=== PATIENT | female | born 1980 | race Caucasian/White ===

== ENCOUNTER 2024-04-10 20:48 | Emergency (ER) | payer MEDICARE, MEDICAID, SELFPAY ==
[2024-04-10] VITALS (21 sets, daily range): BP systolic 80–116; BP diastolic 57–86; PULSE 73–107; TEMP 36.4; O2SAT 97; BMI 73.2
--- NOTE | 2024-04-10 20:51 | ECG_ITS ---
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
--- NOTE | 2024-04-10 20:51 | XR_ITS ---
[address] [address] Patient Name: JOSETTE DAVIS MRN: [id number] date: 1980 Sex: F Assigned Patient Location: ER Current Patient Location: ED.MAIN Accession/Order Number: [id number] Exam Date: 04/10/2024 21:10 Report Date: 04/10/2024 21:58 At the request of: ARMANDO GONZALEZ Procedure: XR chest 1V Exam: Radiographs: XR chest 1V Reason for exam: Altered mental status Comparison: None XR/XR chest 1V IMPRESSION: Surgical clips project over the chest. Pulmonary vascular congestion. Chest is otherwise unremarkable. Electronically authenticated by: GRABIEL SANCHEZ Date: 04/10/2024 21:58
--- NOTE | 2024-04-10 20:55 | ED.GENADUL1 ---
Documented by User: HERI Molina 04/10/24 21:54 HPI HPI - General Adult General Chief complaint: Syncope Stated complaint: Syncope, Nausea/Vomiting Time Seen by Provider: 04/10/24 20:51 History of Present Illness HPI narrative: Patient is a 44-year-old female who presents to the emergency department with her friend for evaluation of near syncope and vomiting. Patient was pulled out of the vehicle that her friend was driving, she lives in [facility] and was driving with a friend to visit family in [place] when the patient began to feel lightheaded and was going in and out associated with vomiting. She had a nosebleed. She had no complete unresponsiveness for any period of time, no injuries or falls. She is drowsy but arousable and answers questions on placement in an exam room. She initially states that she had a blood transfusion and surgery for tubal at [facility]. However when she is asked to qualify this, she states she has a history of low iron secondary to surgery For ectopic that was performed 8 months ago at [facility]. She received a blood transfusion at that time and has not required any further blood transfusions or procedures. 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 She is adamant that she has not been drinking alcohol today. Related Data Home Medications ?Medication ?Instructions ?Recorded ?Confirmed gabapentin 800 mg tablet 800 mg PO TID 04/10/24 04/10/24 venlafaxine 150 mg 150 mg PO DAILY 04/10/24 04/10/24 capsule,extended release 24 hr Allergies Allergy/AdvReac Type Severity Reaction Status Date / Time No Known Drug Allergies Allergy Verified 04/10/24 20:57 Opioid HPI Opioid Management Most Recent Opioid Data: Ur Phencyclidine Scrn Negative (NEGATIVE) 04/10/24 23:25 Exam Constitutional Vital Signs, click to edit/add: Last Vital Signs Temp 97.6 F 04/10/24 20:51 Pulse 98 H 04/10/24 23:00 Resp 22 H 04/10/24 23:00 BP 115/71 04/10/24 23:00 Pulse Ox 97 04/10/24 20:51 O2 Del Method Room Air 04/10/24 20:51 Course Vital Signs Vital signs: Vital Signs Temperature 97.6 F 04/10/24 20:51 Pulse Rate 73 04/10/24 20:51 Respiratory Rate 20 04/10/24 20:51 Blood Pressure 80/61 L 04/10/24 20:51 Pulse Oximetry 97 04/10/24 20:51 Oxygen Delivery Method Room Air 04/10/24 20:51 Temperature 97.6 F 04/10/24 20:51 Pulse Rate 98 H 04/10/24 23:00 Respiratory Rate 22 H 04/10/24 23:00 Blood Pressure 115/71 04/10/24 23:00 Pulse Oximetry 97 04/10/24 20:51 Oxygen Delivery Method Room Air 04/10/24 20:51 Medical Decision Making MDM Narrative Medical decision making narrative: Patient was brought directly to an exam room and was evaluated by myself and nursing staff. She was found to be hypotensive initially, when she laid flat and her blood pressure improved, the patient became more awake and alert. She has no slurred speech or focal neuro deficit in the ER. She refused a head CT but was agreeable to a chest x-ray. Blood sugar is 164 at the bedside, EKG obtained and labs were established with IV for IV fluids. 2152: Case turned over to attending physician at this time SHARED APC VISIT, PHYSICIAN ATTESTATION: [id number] I performed a substantive part of the MDM during the patient?s E/M visit. I personally evaluated and examined the patient. I personally made or approved the documented management plan and acknowledge its risk of complications. Medical Records Medical records reviewed: Yes I reviewed the patient's medical records Lab Data Lab results reviewed: Yes I reviewed the patient's lab results Labs: Lab Results 04/10/24 04/10/24 04/10/24 Range/Units 20:55 21:00 23:25 WBC 16.9 H (4.0-11.0) 10^3/uL RBC 4.16 L (4.20-5.40) 10^6/uL Hgb 12.5 (12.0-16.0) g/dL Hct 37.5 (36.0-48.0) % MCV 90.1 (81.0-99.0) fL MCH 30.0 (26.7-34.0) pg MCHC 33.3 (29.9-35.2) g/dL RDW 12.0 (11.0-15.0) % Plt Count 447 (150-450) 10^3/uL MPV 9.3 L (9.5-13.5) fL Seg Neuts % (Manual) 43.0 Band Neutrophils % 1.0 (0-5) % Lymphocytes % (Manual) 33.0 (20.5-60.0) % Atypical Lymphs % (Man) 16.0 % Monocytes % (Manual) 4.0 (1.7-12.0) % Eosinophils % (Manual) 3.0 (0.9-7.0) % Basophils % (Manual) 0.0 L (0.2-2.0) % Neutrophils # (Manual) 7.26 H (1.4-6.5) 10^3/uL Band Neutrophils # 0.2 (0.0-0.3) 10^3/uL Lymphocytes # (Manual) 5.57 H (1.20-3.80) 10^3/uL Abs Atypical Lymphs Man 2.70 Monocytes # (Manual) 0.67 (0.30-0.80) 10^3/uL Eosinophils # (Manual) 0.50 (0.00-0.70) 10^3/uL Basophils # (Manual) 0.00 (0.00-0.10) 10^3/uL PT 9.8 (9.0-11.6) sec INR <0.93 VBG pH 7.454 H (7.330-7.430) VBG pCO2 32.7 L (40.0-52.0) mmHg Sodium 136 (136-145) mmol/L Potassium 2.6 L* (3.5-5.1) mmol/L Chloride 99 (98-107) mmol/L Carbon Dioxide 24.2 (21.0-32.0) mmol/L Anion Gap 15.4 BUN 9.0 (7.0-18.0) mg/dL Creatinine 1.05 H (0.55-1.02) mg/dL Est GFR ( Amer) >60 (>=60) Est GFR (Non-Af Amer) 57 L (>=60) BUN/Creatinine Ratio 8.6 Glucose 174 H (74-106) mg/dL Lactate 3.6 H* (0.4-2.0) mmol/L Calcium 9.2 (8.5-10.1) mg/dL Magnesium 2.3 (1.8-2.4) mg/dL Total Bilirubin 0.3 (0.2-1.0) mg/dL AST 17 (15-37) U/L ALT 52 (14-59) U/L Alkaline Phosphatase 78 (46-116) U/L Troponin I High Sens <4.0 L (4.0-51.3) pg/mL Total Protein 7.5 (6.4-8.2) g/dL Albumin 3.7 (3.4-5.0) g/dL Globulin 3.8 g/dL Albumin/Globulin Ratio 1.0 TSH 2.203 (0.358-3.740) uIU/mL Serum HCG, Qual Negative (NEGATIVE) Urine Color Lt. yellow (YELLOW) Urine Clarity Clear (CLEAR) Urine pH 7.0 (5.0-9.0) Ur Specific [place] 1.010 (1.005-1.025) Urine Protein Negative (NEG/TRACE) mg/dL Urine Glucose (UA) Negative (NEGATIVE) mg/dL Urine Ketones Negative (NEGATIVE) mg/dL Urine Occult Blood Negative (NEGATIVE) Urine Nitrite Negative (NEGATIVE) Urine Bilirubin Negative (NEGATIVE) Urine Urobilinogen 0.2 (0.2-1.0) EU/dL Ur Leukocyte Esterase Negative (NEGATIVE) Urine Opiates Screen Negative (NEGATIVE) Ur Buprenorphine Scrn Negative (NEGATIVE) Ur Oxycodone Screen Negative (NEGATIVE) Urine Methadone Screen Negative (NEGATIVE) Ur Barbiturates Screen Negative (NEGATIVE) U Tricyclic Antidepress Negative (NEGATIVE) Ur Phencyclidine Scrn Negative (NEGATIVE) Ur Amphetamines Screen Negative (NEGATIVE) U Methamphetamines Scrn Negative (NEGATIVE) U Benzodiazepines Scrn Negative (NEGATIVE) Urine Cocaine Screen Negative (NEGATIVE) U Cannabinoids Screen Positive A (NEGATIVE) Ethanol Quant <3 mg/dL POC Glucose 164 H (74-106) mg/dL 04/11/24 Range/Units 00:05 WBC (4.0-11.0) 10^3/uL RBC (4.20-5.40) 10^6/uL Hgb (12.0-16.0) g/dL Hct (36.0-48.0) % MCV (81.0-99.0) fL MCH (26.7-34.0) pg MCHC (29.9-35.2) g/dL RDW (11.0-15.0) % Plt Count (150-450) 10^3/uL MPV (9.5-13.5) fL Seg Neuts % (Manual) Band Neutrophils % (0-5) % Lymphocytes % (Manual) (20.5-60.0) % Atypical Lymphs % (Man) % Monocytes % (Manual) (1.7-12.0) % Eosinophils % (Manual) (0.9-7.0) % Basophils % (Manual) (0.2-2.0) % Neutrophils # (Manual) (1.4-6.5) 10^3/uL Band Neutrophils # (0.0-0.3) 10^3/uL Lymphocytes # (Manual) (1.20-3.80) 10^3/uL Abs Atypical Lymphs Man Monocytes # (Manual) (0.30-0.80) 10^3/uL Eosinophils # (Manual) (0.00-0.70) 10^3/uL Basophils # (Manual) (0.00-0.10) 10^3/uL PT (9.0-11.6) sec INR VBG pH (7.330-7.430) VBG pCO2 (40.0-52.0) mmHg Sodium (136-145) mmol/L Potassium (3.5-5.1) mmol/L Chloride (98-107) mmol/L Carbon Dioxide (21.0-32.0) mmol/L Anion Gap BUN (7.0-18.0) mg/dL Creatinine (0.55-1.02) mg/dL Est GFR ( Amer) (>=60) Est GFR (Non-Af Amer) (>=60) BUN/Creatinine Ratio Glucose (74-106) mg/dL Lactate 2.0 (0.4-2.0) mmol/L Calcium (8.5-10.1) mg/dL Magnesium (1.8-2.4) mg/dL Total Bilirubin (0.2-1.0) mg/dL AST (15-37) U/L ALT (14-59) U/L Alkaline Phosphatase (46-116) U/L Troponin I High Sens (4.0-51.3) pg/mL Total Protein (6.4-8.2) g/dL Albumin (3.4-5.0) g/dL Globulin g/dL Albumin/Globulin Ratio TSH (0.358-3.740) uIU/mL Serum HCG, Qual (NEGATIVE) Urine Color (YELLOW) Urine Clarity (CLEAR) Urine pH (5.0-9.0) Ur Specific [place] (1.005-1.025) Urine Protein (NEG/TRACE) mg/dL Urine Glucose (UA) (NEGATIVE) mg/dL Urine Ketones (NEGATIVE) mg/dL Urine Occult Blood (NEGATIVE) Urine Nitrite (NEGATIVE) Urine Bilirubin (NEGATIVE) Urine Urobilinogen (0.2-1.0) EU/dL Ur Leukocyte Esterase (NEGATIVE) Urine Opiates Screen (NEGATIVE) Ur Buprenorphine Scrn (NEGATIVE) Ur Oxycodone Screen (NEGATIVE) Urine Methadone Screen (NEGATIVE) Ur Barbiturates Screen (NEGATIVE) U Tricyclic Antidepress (NEGATIVE) Ur Phencyclidine Scrn (NEGATIVE) Ur Amphetamines Screen (NEGATIVE) U Methamphetamines Scrn (NEGATIVE) U Benzodiazepines Scrn (NEGATIVE) Urine Cocaine Screen (NEGATIVE) U Cannabinoids Screen (NEGATIVE) Ethanol Quant mg/dL POC Glucose (74-106) mg/dL Imaging Data Chest x-ray: Attestation: I have reviewed the pertinent imaging results. Radiologist's impression: ITS Impressions Chest X-Ray 04/10/24 20:51 IMPRESSION: Surgical clips project over the chest. Pulmonary vascular congestion. Chest is otherwise unremarkable. Electronically authenticated by: GRABIEL SANCHEZ Date: 04/10/2024 21:[address] 04/10/24 23:29 IMPRESSION: 1. No acute intracranial abnormality. No hemorrhage or mass effect. 2. Opacification of mastoid air cells within the mastoid tip on the left. Electronically authenticated by: KECIA METZGER Date: 04/11/2024 00:03 Chest CTA 04/11/24 00:49 IMPRESSION: 1. No acute pulmonary embolism, aortic dissection, or other acute cardiopulmonary findings. 2. Suggested 2 cm hypodense right thyroid lobe lesion. Elective thyroid ultrasound could further evaluate. 3. Prior bilateral mastectomy and breast reconstruction. Electronically authenticated by: DMITRI NUÑEZ Date: 04/11/2024 02:17 ECG Data Attestation: I personally reviewed and interpreted this ECG as follows: (Normal sinus rhythm at a rate of 85, no acute ST elevation or ectopy. EKG reviewed by attending physician) Discharge Plan Discharge Stand Alone Forms: Portal Instructions Chief Complaint: Syncope Clinical Impression: Hypokalemia, Syncope Patient Disposition: Home, Self-Care Time of Disposition Decision: 00:44 Condition: Good Prescriptions / Home Meds: No Action gabapentin 800 mg tablet 800 mg PO TID venlafaxine 150 mg capsule,extended release 24hr 150 mg PO DAILY Print Language: Fijian Instructions: Potassium Content of Foods List (ED), Hypokalemia (ED), Syncope (ED) Referrals: Physician,Non-Staff, MD [Primary Care Provider] - 1 week Documented by User: Nathaly Reese MD 04/11/24 02:30 HPI HPI - General Adult General Chief complaint: Syncope Stated complaint: Syncope, Nausea/Vomiting Time Seen by Provider: 04/10/24 20:51 Related Data Home Medications ?Medication ?Instructions ?Recorded ?Confirmed gabapentin 800 mg tablet 800 mg PO TID 04/10/24 04/10/24 venlafaxine 150 mg 150 mg PO DAILY 04/10/24 04/10/24 capsule,extended release 24 hr Allergies Allergy/AdvReac Type Severity Reaction Status Date / Time No Known Drug Allergies Allergy Verified 04/10/24 20:57 Opioid HPI Opioid Management Most Recent Opioid Data: Ur Phencyclidine Scrn Negative (NEGATIVE) 04/10/24 23:25 Exam Constitutional Vital Signs, click to edit/add: Last Vital Signs Temp 97.6 F 04/10/24 20:51 Pulse 98 H 04/10/24 23:00 Resp 22 H 04/10/24 23:00 BP 115/71 04/10/24 23:00 Pulse Ox 97 04/10/24 20:51 O2 Del Method Room Air 04/10/24 20:51 Course Vital Signs Vital signs: Vital Signs Temperature 97.6 F 04/10/24 20:51 Pulse Rate 73 04/10/24 20:51 Respiratory Rate 20 04/10/24 20:51 Blood Pressure 80/61 L 04/10/24 20:51 Pulse Oximetry 97 04/10/24 20:51 Oxygen Delivery Method Room Air 04/10/24 20:51 Temperature 97.6 F 04/10/24 20:51 Pulse Rate 98 H 04/10/24 23:00 Respiratory Rate 22 H 04/10/24 23:00 Blood Pressure 115/71 04/10/24 23:00 Pulse Oximetry 97 04/10/24 20:51 Oxygen Delivery Method Room Air 04/10/24 20:51 Medical Decision Making MDM Narrative Medical decision making narrative: Patient was brought directly to an exam room and was evaluated by myself and nursing staff. She was found to be hypotensive initially, when she laid flat and her blood pressure improved, the patient became more awake and alert. She has no slurred speech or focal neuro deficit in the ER. She refused a head CT but was agreeable to a chest x-ray. Blood sugar is 164 at the bedside, EKG obtained and labs were established with IV for IV fluids. 2152: Case turned over to attending physician at this time SHARED APC VISIT, PHYSICIAN ATTESTATION: [id number] I performed a substantive part of the MDM during the patient?s E/M visit. I personally evaluated and examined the patient. I personally made or approved the documented management plan and acknowledge its risk of complications. This 44-year-old female was seen and evaluated in conjunction with the physician assistant controller. She was brought to the emergency department by her family who is heading to a friend's house in [place] when she suddenly became less responsive and syncopal/near syncopal in the car. Upon arrival she was seen and evaluated in room 4. A cardiac workup was ordered including a CT scan of the brain which she initially refused. EKG upon arrival was a sinus rhythm 85 bpm with a normal axis. According to the woman with the patient she has had similar episodes of syncope in the past when she was taking Accutane and drinking alcohol. Her workup today is normal with the exception of an elevated lactic acid and low potassium and elevated WBC count of 16.9. She was given oral and IV potassium supplementation. On reevaluation she is awake alert oriented. She does have a history of breast cancer at the age of 26 and had a mastectomy on the left side and has some lymphedema of the left arm. This is unchanged. There is no induration or tenderness concerning for DVT. After her initial treatment she was feeling better, awake alert oriented, giving a complete history, she is tolerating clear liquids. She ultimately agreed to the CT scan of her brain. The CT scan of her brain was negative for acute findings. Her alcohol level was 0 and her urine tox was positive for marijuana. Repeat lactic acid is normal at 2. She agrees to follow-up closely with her family physician in her hometown. She will be discharged home with a prescription for potassium to take for the next week until she can get her potassium rechecked. There is no sign of infection despite her elevated white count and lactic acid. I suspect the symptoms are related to what ever caused her to have the syncopal event in the first place and are acute phase reactants. The patient agreed to a CT angiogram due to her history of tobacco use and cancer to rule out PE or other cancer related findings. CT scan is included in the body of this report and does not show any pulmonary embolism, aortic abnormality but does show a thyroid nodule. This was discussed with the patient and she was given a copy to share with her physician. It suggest that she should have a thyroid ultrasound. She will follow-up with her family physician regarding this. She is otherwise hemodynamically stable and was has received her fluids with potassium. She will be discharged home with prescription for potassium supplementation for the next week with recommendation for close follow-up with her family physician for repeat testing. Medical Records Medical records narrative: The [address] [address] [address] Scan Report Signed Patient: JOSETTE DAVIS MR#: [id number] : 1980 Acct:[id number] Age/Sex: 44 / F ADM Date: 04/10/24 Loc: ER Attending Dr: Ordering Physician: Nathaly Reese Date of Service: 04/10/24 Procedure(s): CT head/brain wo con Accession Number(s): [id number] cc: Physician,Non-Staff M.Giovanni~ The [address] [address] Patient Name: JOSETTE DAVIS MRN: [id number] date: 1980 Sex: F Assigned Patient Location: ER Current Patient Location: ER Accession/Order Number: [id number] Exam Date: 04/10/2024 23:40 Report Date: 04/11/2024 00:03 At the request of: NATHALY REESE Procedure: CT head/brain wo con INDICATION: 44 years old; Female. Syncopal episode today. TECHNIQUE: CT Head (ax/cor/sag reformats). Ionizing radiation dose reduced via iterative reconstruction/FBP blend and body size kV/mA adjustment. Comparison: None FINDINGS: POSTOPERATIVE CHANGES: None. BRAIN PARENCHYMA: No intraparenchymal or extra-axial hemorrhage. No mass effect. No midline shift or herniation. Normal demarco/white differentiation. VENTRICLES/EXTRA-AXIAL SPACES: Normal for patient's age. SINUSES/MASTOIDS: Sinuses are clear, however the ethmoid and maxillary sinuses are not completely included. There is opacification of mastoid air cells present on the left within the mastoid tip. Middle ears are clear bilaterally. Mastoids and the right are clear. MSK: No displaced or depressed calvarial fracture. OTHER: No hyperdense intraluminal thrombus. CT/CT head/brain wo con IMPRESSION: 1. No acute intracranial abnormality. No hemorrhage or mass effect. 2. Opacification of mastoid air cells within the mastoid tip on the left. Electronically authenticated by: KECIA METZGER Date: 04/11/2024 00:03 [place] [address] CT Scan Report Signed Patient: JOSETTE DAVIS MR#: [id number] : 1980 Acct:[id number] Age/Sex: 44 / F ADM Date: 04/10/24 Loc: ER Attending Dr: Ordering Physician: Nathaly Reese Date of Service: 04/11/24 Procedure(s): CT angio chest Accession Number(s): [id number] cc: Physician,Non-Staff M.Giovanni~ The [place] [address] Patient Name: JOSETTE DAVIS MRN: [id number] date: 1980 Sex: F Assigned Patient Location: ER Current Patient Location: ER Accession/Order Number: [id number] Exam Date: 04/11/2024 01:17 Report Date: 04/11/2024 02:17 At the request of: NATHALY REESE Procedure: CT angio chest EXAM: CT angio chest HISTORY: syncope, hx breast ca COMPARISON: Chest x-ray, 04/10/2024. TECHNIQUE: IV contrast enhanced CTA imaging the chest was performed using 100 mL of Omnipaque 350 intravenous contrast. MIP, MPR and 3-D reconstructions are provided. Dose reduction techniques were achieved by using automated exposure control and/or adjustment of mA and/or kV according to patient size and/or use of iterative reconstruction technique. FINDINGS: There is excellent enhancement of the pulmonary arteries. No acute pulmonary embolism is seen. There is no coronary arterial calcification. Cardiac size is normal. There is no pericardial effusion. Pulsation artifact degrades ascending aorta. The brachiocephalic artery and left common carotid artery share a common origin off the aortic arch, consistent with a normal variant bovine arch. The thoracic aorta and arch vessels are otherwise unremarkable. There is no dissection or aneurysm. There is asymmetric enlargement of the right thyroid lobe with a suggested 2 cm ovoid hypodense lesion on image 13 of series 4. Several nonspecific prominent right axillary nodes have fatty yoly and appear benign. The lungs and pleural spaces are clear. The upper abdomen is unremarkable. Postoperative change for bilateral mastectomy and breast reconstruction is noted. The bony thorax is intact. CT/CT angio chest IMPRESSION: 1. No acute pulmonary embolism, aortic dissection, or other acute cardiopulmonary findings. 2. Suggested 2 cm hypodense right thyroid lobe lesion. Elective thyroid ultrasound could further evaluate. 3. Prior bilateral mastectomy and breast reconstruction. Electronically authenticated by: DMITRI NUÑEZ Date: 04/11/2024 02:17 Lab Data Labs: Lab Results 04/10/24 04/10/24 04/10/24 Range/Units 20:55 21:00 23:25 WBC 16.9 H (4.0-11.0) 10^3/uL RBC 4.16 L (4.20-5.40) 10^6/uL Hgb 12.5 (12.0-16.0) g/dL Hct 37.5 (36.0-48.0) % MCV 90.1 (81.0-99.0) fL MCH 30.0 (26.7-34.0) pg MCHC 33.3 (29.9-35.2) g/dL RDW 12.0 (11.0-15.0) % Plt Count 447 (150-450) 10^3/uL MPV 9.3 L (9.5-13.5) fL Seg Neuts % (Manual) 43.0 Band Neutrophils % 1.0 (0-5) % Lymphocytes % (Manual) 33.0 (20.5-60.0) % Atypical Lymphs % (Man) 16.0 % Monocytes % (Manual) 4.0 (1.7-12.0) % Eosinophils % (Manual) 3.0 (0.9-7.0) % Basophils % (Manual) 0.0 L (0.2-2.0) % Neutrophils # (Manual) 7.26 H (1.4-6.5) 10^3/uL Band Neutrophils # 0.2 (0.0-0.3) 10^3/uL Lymphocytes # (Manual) 5.57 H (1.20-3.80) 10^3/uL Abs Atypical Lymphs Man 2.70 Monocytes # (Manual) 0.67 (0.30-0.80) 10^3/uL Eosinophils # (Manual) 0.50 (0.00-0.70) 10^3/uL Basophils # (Manual) 0.00 (0.00-0.10) 10^3/uL PT 9.8 (9.0-11.6) sec INR <0.93 VBG pH 7.454 H (7.330-7.430) VBG pCO2 32.7 L (40.0-52.0) mmHg Sodium 136 (136-145) mmol/L Potassium 2.6 L* (3.5-5.1) mmol/L Chloride 99 (98-107) mmol/L Carbon Dioxide 24.2 (21.0-32.0) mmol/L Anion Gap 15.4 BUN 9.0 (7.0-18.0) mg/dL Creatinine 1.05 H (0.55-1.02) mg/dL Est GFR ( Amer) >60 (>=60) Est GFR (Non-Af Amer) 57 L (>=60) BUN/Creatinine Ratio 8.6 Glucose 174 H (74-106) mg/dL Lactate 3.6 H* (0.4-2.0) mmol/L Calcium 9.2 (8.5-10.1) mg/dL Magnesium 2.3 (1.8-2.4) mg/dL Total Bilirubin 0.3 (0.2-1.0) mg/dL AST 17 (15-37) U/L ALT 52 (14-59) U/L Alkaline Phosphatase 78 (46-116) U/L Troponin I High Sens <4.0 L (4.0-51.3) pg/mL Total Protein 7.5 (6.4-8.2) g/dL Albumin 3.7 (3.4-5.0) g/dL Globulin 3.8 g/dL Albumin/Globulin Ratio 1.0 TSH 2.203 (0.358-3.740) uIU/mL Serum HCG, Qual Negative (NEGATIVE) Urine Color Lt. yellow (YELLOW) Urine Clarity Clear (CLEAR) Urine pH 7.0 (5.0-9.0) Ur Specific [place] 1.010 (1.005-1.025) Urine Protein Negative (NEG/TRACE) mg/dL Urine Glucose (UA) Negative (NEGATIVE) mg/dL Urine Ketones Negative (NEGATIVE) mg/dL Urine Occult Blood Negative (NEGATIVE) Urine Nitrite Negative (NEGATIVE) Urine Bilirubin Negative (NEGATIVE) Urine Urobilinogen 0.2 (0.2-1.0) EU/dL Ur Leukocyte Esterase Negative (NEGATIVE) Urine Opiates Screen Negative (NEGATIVE) Ur Buprenorphine Scrn Negative (NEGATIVE) Ur Oxycodone Screen Negative (NEGATIVE) Urine Methadone Screen Negative (NEGATIVE) Ur Barbiturates Screen Negative (NEGATIVE) U Tricyclic Antidepress Negative (NEGATIVE) Ur Phencyclidine Scrn Negative (NEGATIVE) Ur Amphetamines Screen Negative (NEGATIVE) U Methamphetamines Scrn Negative (NEGATIVE) U Benzodiazepines Scrn Negative (NEGATIVE) Urine Cocaine Screen Negative (NEGATIVE) U Cannabinoids Screen Positive A (NEGATIVE) Ethanol Quant <3 mg/dL POC Glucose 164 H (74-106) mg/dL 04/11/24 Range/Units 00:05 WBC (4.0-11.0) 10^3/uL RBC (4.20-5.40) 10^6/uL Hgb (12.0-16.0) g/dL Hct (36.0-48.0) % MCV (81.0-99.0) fL MCH (26.7-34.0) pg MCHC (29.9-35.2) g/dL RDW (11.0-15.0) % Plt Count (150-450) 10^3/uL MPV (9.5-13.5) fL Seg Neuts % (Manual) Band Neutrophils % (0-5) % Lymphocytes % (Manual) (20.5-60.0) % Atypical Lymphs % (Man) % Monocytes % (Manual) (1.7-12.0) % Eosinophils % (Manual) (0.9-7.0) % Basophils % (Manual) (0.2-2.0) % Neutrophils # (Manual) (1.4-6.5) 10^3/uL Band Neutrophils # (0.0-0.3) 10^3/uL Lymphocytes # (Manual) (1.20-3.80) 10^3/uL Abs Atypical Lymphs Man Monocytes # (Manual) (0.30-0.80) 10^3/uL Eosinophils # (Manual) (0.00-0.70) 10^3/uL Basophils # (Manual) (0.00-0.10) 10^3/uL PT (9.0-11.6) sec INR VBG pH (7.330-7.430) VBG pCO2 (40.0-52.0) mmHg Sodium (136-145) mmol/L Potassium (3.5-5.1) mmol/L Chloride (98-107) mmol/L Carbon Dioxide (21.0-32.0) mmol/L Anion Gap BUN (7.0-18.0) mg/dL Creatinine (0.55-1.02) mg/dL Est GFR ( Amer) (>=60) Est GFR (Non-Af Amer) (>=60) BUN/Creatinine Ratio Glucose (74-106) mg/dL Lactate 2.0 (0.4-2.0) mmol/L Calcium (8.5-10.1) mg/dL Magnesium (1.8-2.4) mg/dL Total Bilirubin (0.2-1.0) mg/dL AST (15-37) U/L ALT (14-59) U/L Alkaline Phosphatase (46-116) U/L Troponin I High Sens (4.0-51.3) pg/mL Total Protein (6.4-8.2) g/dL Albumin (3.4-5.0) g/dL Globulin g/dL Albumin/Globulin Ratio TSH (0.358-3.740) uIU/mL Serum HCG, Qual (NEGATIVE) Urine Color (YELLOW) Urine Clarity (CLEAR) Urine pH (5.0-9.0) Ur Specific [place] (1.005-1.025) Urine Protein (NEG/TRACE) mg/dL Urine Glucose (UA) (NEGATIVE) mg/dL Urine Ketones (NEGATIVE) mg/dL Urine Occult Blood (NEGATIVE) Urine Nitrite (NEGATIVE) Urine Bilirubin (NEGATIVE) Urine Urobilinogen (0.2-1.0) EU/dL Ur Leukocyte Esterase (NEGATIVE) Urine Opiates Screen (NEGATIVE) Ur Buprenorphine Scrn (NEGATIVE) Ur Oxycodone Screen (NEGATIVE) Urine Methadone Screen (NEGATIVE) Ur Barbiturates Screen (NEGATIVE) U Tricyclic Antidepress (NEGATIVE) Ur Phencyclidine Scrn (NEGATIVE) Ur Amphetamines Screen (NEGATIVE) U Methamphetamines Scrn (NEGATIVE) U Benzodiazepines Scrn (NEGATIVE) Urine Cocaine Screen (NEGATIVE) U Cannabinoids Screen (NEGATIVE) Ethanol Quant mg/dL POC Glucose (74-106) mg/dL Imaging Data Chest x-ray: Radiologist's impression: ITS Impressions Chest X-Ray 04/10/24 20:51 IMPRESSION: Surgical clips project over the chest. Pulmonary vascular congestion. Chest is otherwise unremarkable. Electronically authenticated by: GRABIEL SANCHEZ Date: 04/10/2024 21:[address] 04/10/24 23:29 IMPRESSION: 1. No acute intracranial abnormality. No hemorrhage or mass effect. 2. Opacification of mastoid air cells within the mastoid tip on the left. Electronically authenticated by: KECIA METZGER Date: 04/11/2024 00:03 Chest CTA 04/11/24 00:49 IMPRESSION: 1. No acute pulmonary embolism, aortic dissection, or other acute cardiopulmonary findings. 2. Suggested 2 cm hypodense right thyroid lobe lesion. Elective thyroid ultrasound could further evaluate. 3. Prior bilateral mastectomy and breast reconstruction. Electronically authenticated by: DMITRI NUÑEZ Date: 04/11/2024 02:17 Discharge Plan Discharge Stand Alone Forms: Portal Instructions Chief Complaint: Syncope Clinical Impression: Hypokalemia, Syncope Patient Disposition: Home, Self-Care Time of Disposition Decision: 00:44 Condition: Good Prescriptions / Home Meds: No Action gabapentin 800 mg tablet 800 mg PO TID venlafaxine 150 mg capsule,extended release 24hr 150 mg PO DAILY Print Language: Fijian Instructions: Potassium Content of Foods List (ED), Hypokalemia (ED), Syncope (ED) Referrals: Physician,Non-Staff, MD [Primary Care Provider] - 1 week
[2024-04-10 21:04] LABS: Glucometer 164 mg/dL (74-106)
[2024-04-10] MEDS: 0.9 % SODIUM CHLORIDE 1,000 ML 999 ML IV (21:18)
[2024-04-10] MEDS: ONDANSETRON PF 4 MG/2 ML VIAL IV (21:18)
[2024-04-10 21:26] LABS: PCO2 VBG 32.7 mmHg (40.0-52.0); pH VBG 7.454 (7.330-7.430)
[2024-04-10 21:28] LABS: Hematocrit 37.5 % (36.0-48.0); Hemoglobin 12.5 g/dL (12.0-16.0); Mean Corpuscular HGB Conc 33.3 g/dL (29.9-35.2); Mean Corpuscular Volume 90.1 fL (81.0-99.0); Mean Platelet Volume 9.3 fL (9.5-13.5); Platelet Count 447 10^3/uL (150-450); Red Blood Count 4.16 10^6/uL (4.20-5.40); White Blood Count 16.9 10^3/uL (4.0-11.0)
[2024-04-10 21:39] LABS: HCG Qualitative NEGATIVE (NEGATIVE); Internal Control Within Normal Limits
[2024-04-10 21:41] LABS: Prothrombin Time 9.8 sec (9.0-11.6)
[2024-04-10 21:44] LABS: INR <0.93
[2024-04-10 21:55] LABS: Alanine Aminotransferase 52 U/L (14-59); Albumin Level 3.7 g/dL (3.4-5.0); Alkaline Phosphatase 78 U/L (46-116); Anion Gap 15.4; Aspartate Amino Transferase 17 U/L (15-37); BUN Creatinine Ratio 8.6; Bilirubin Total 0.3 mg/dL (0.2-1.0); Calcium 9.2 mg/dL (8.5-10.1); Carbon Dioxide 24.2 mmol/L (21.0-32.0); Chloride 99 mmol/L (98-107); Estimated GFR (African America >60 (>=60); Estimated GFR (Non-African Ame 57 (>=60); Ethanol <3 mg/dL; Globulin 3.8 g/dL; Glucose 174 mg/dL (74-106); Magnesium 2.3 mg/dL (1.8-2.4); Sodium 136 mmol/L (136-145); Thyroid Stimulating Hormone 2.203 uIU/mL (0.358-3.740); Total Protein 7.5 g/dL (6.4-8.2); Troponin I High Sensitivity <4.0 pg/mL (4.0-51.3)
[2024-04-10 22:01] LABS: Lactate/Lactic Acid 3.6 mmol/L (0.4-2.0); Potassium 2.6 mmol/L (3.5-5.1)
[2024-04-10 22:06] LABS: Band Neutrophils Absolute 0.2 10^3/uL (0.0-0.3); Lymphocytes Absolute Manual 5.57 10^3/uL (1.20-3.80); Monocytes Absolute Manual 0.67 10^3/uL (0.30-0.80); Segmented Neut Absolute Manual 7.26 10^3/uL (1.4-6.5)
[2024-04-10] MEDS: POTASSIUM BICARBONATE/CIT 25 MEQ TABLET EFF 50 MEQ PO (22:28)
[2024-04-10] MEDS: POTASSIUM CHLORIDE IN 0.9%NACL 1,000 ML 250 MEQ IV (22:28)
--- NOTE | 2024-04-10 23:29 | CT_ITS ---
The [address] [address] Patient Name: JOSETTE DAVIS MRN: [id number] date: 1980 Sex: F Assigned Patient Location: ER Current Patient Location: ER Accession/Order Number: [id number] Exam Date: 04/10/2024 23:40 Report Date: 04/11/2024 00:03 At the request of: ALONSO MARKER Procedure: CT head/brain wo con INDICATION: 44 years old; Female. Syncopal episode today. TECHNIQUE: CT Head (ax/cor/sag reformats). Ionizing radiation dose reduced via iterative reconstruction/FBP blend and body size kV/mA adjustment. Comparison: None FINDINGS: POSTOPERATIVE CHANGES: None. BRAIN PARENCHYMA: No intraparenchymal or extra-axial hemorrhage. No mass effect. No midline shift or herniation. Normal demarco/white differentiation. VENTRICLES/EXTRA-AXIAL SPACES: Normal for patient's age. SINUSES/MASTOIDS: Sinuses are clear, however the ethmoid and maxillary sinuses are not completely included. There is opacification of mastoid air cells present on the left within the mastoid tip. Middle ears are clear bilaterally. Mastoids and the right are clear. MSK: No displaced or depressed calvarial fracture. OTHER: No hyperdense intraluminal thrombus. CT/CT head/brain wo con IMPRESSION: 1. No acute intracranial abnormality. No hemorrhage or mass effect. 2. Opacification of mastoid air cells within the mastoid tip on the left. Electronically authenticated by: KECIA METZGER Date: 04/11/2024 00:03
[2024-04-10 23:35] LABS: Bilirubin Urine NEGATIVE (NEGATIVE); Blood Urine NEGATIVE (NEGATIVE); Clarity Urine CLEAR (CLEAR); Color Urine LT. YELLOW (YELLOW); Glucose Urine UA NEGATIVE (NEGATIVE); Ketones Urine NEGATIVE (NEGATIVE); Leukocyte Esterase Urine NEGATIVE (NEGATIVE); Nitrite Urine NEGATIVE (NEGATIVE); Protein Urine NEGATIVE (NEG/TRACE); Urobilinogen Urine 0.2 EU/dL (0.2-1.0)
[2024-04-10 23:37] LABS: Urine Microscopic Indicated NO
[2024-04-10 23:43] LABS: Amphetamine Screen Urine NEGATIVE (NEGATIVE); Barbiturates Screen Urine NEGATIVE (NEGATIVE); Benzodiazepines Screen Urine NEGATIVE (NEGATIVE); Buprenorphine Screen Urine NEGATIVE (NEGATIVE); Cannabinoid Screen Urine POSITIVE (NEGATIVE); Cocaine Screen Urine NEGATIVE (NEGATIVE); Methadone Screen Urine NEGATIVE (NEGATIVE); Methamphetamines Screen Urine NEGATIVE (NEGATIVE); Opiate Screen Urine NEGATIVE (NEGATIVE); Oxycodone Screen Urine NEGATIVE (NEGATIVE); Phencyclidine Screen Urine NEGATIVE (NEGATIVE); Tricyclic Antidepressant Urine NEGATIVE (NEGATIVE)
[2024-04-11] VITALS (15 sets, daily range): BP systolic 87–113; BP diastolic 56–97; PULSE 78–95
[2024-04-11] MEDS: 0.9 % SODIUM CHLORIDE 1,000 ML 125 ML IV (00:17)
--- NOTE | 2024-04-11 00:49 | CT_ITS ---
The [address] [address] Patient Name: JOSETTE DAVIS MRN: [id number] date: 1980 Sex: F Assigned Patient Location: ER Current Patient Location: Accession/Order Number: [id number] Exam Date: 04/11/2024 01:17 Report Date: 04/11/2024 02:17 At the request of: ALONSO MARKER Procedure: CT angio chest EXAM: CT angio chest HISTORY: syncope, hx breast ca COMPARISON: Chest x-ray, 04/10/2024. TECHNIQUE: IV contrast enhanced CTA imaging the chest was performed using 100 mL of Omnipaque 350 intravenous contrast. MIP, MPR and 3-D reconstructions are provided. Dose reduction techniques were achieved by using automated exposure control and/or adjustment of mA and/or kV according to patient size and/or use of iterative reconstruction technique. FINDINGS: There is excellent enhancement of the pulmonary arteries. No acute pulmonary embolism is seen. There is no coronary arterial calcification. Cardiac size is normal. There is no pericardial effusion. Pulsation artifact degrades ascending aorta. The brachiocephalic artery and left common carotid artery share a common origin off the aortic arch, consistent with a normal variant bovine arch. The thoracic aorta and arch vessels are otherwise unremarkable. There is no dissection or aneurysm. There is asymmetric enlargement of the right thyroid lobe with a suggested 2 cm ovoid hypodense lesion on image 13 of series 4. Several nonspecific prominent right axillary nodes have fatty yoly and appear benign. The lungs and pleural spaces are clear. The upper abdomen is unremarkable. Postoperative change for bilateral mastectomy and breast reconstruction is noted. The bony thorax is intact. CT/CT angio chest IMPRESSION: 1. No acute pulmonary embolism, aortic dissection, or other acute cardiopulmonary findings. 2. Suggested 2 cm hypodense right thyroid lobe lesion. Elective thyroid ultrasound could further evaluate. 3. Prior bilateral mastectomy and breast reconstruction. Electronically authenticated by: DMITRI NUÑEZ Date: 04/11/2024 02:17
== END 2024-04-11 02:38 | disposition home or self-care (01) ==
PROVIDERS: Physician Assistant; Emergency Provider Emergency Medicine
DX: R55 Syncope and collapse (principal); E87.6 Hypokalemia; Z79.899 Other long term (current) drug therapy
CPT/HCPCS: 36415; 70450; 71045; 71275; 80053; 80307; 80320; 81003; 82800; 83605; 83735; 84443; 84484; 84703; 85007; 85027; 85610; 93005; 96361; 96374; 96375; 99285; J2405; Q9967